=== PATIENT | female | born 1950 | race Two or more races ===

== ENCOUNTER 2017-03-12 08:38 | Emergency (ER) | payer MEDICARE, OTHER ==
[~2017-03-12] VITALS: Ht 154.9 cm; Wt 65.3 kg
[2017-03-12 08:47] VITALS: BP 167/82
[2017-03-12] MEDS ORDERED: TETRACAINE HCL 0.5% OPTH(EYE) SOLN 4ML EACHEYE ONE (09:45)
[2017-03-12] MEDS ORDERED: FLUORESCEIN SOD 1 MG TEST STRIP OP ONE (09:45)
== END 2017-03-12 09:53 | disposition home or self-care (01) ==
LOC: ER 08:38
DX: S05.02XA Injury of conjunctiva and corneal abrasion without foreign body, left eye, initial encounter (principal); E11.9 Type 2 diabetes mellitus without complications; X58.XXXA Exposure to other specified factors, initial encounter; Y93.89 Activity, other specified; Y92.89 Other specified places as the place of occurrence of the external cause; Y99.8 Other external cause status